=== PATIENT | male | born 1940 | race Two or more races ===

== ENCOUNTER 2020-08-12 00:14 | Inpatient (IN) | payer MEDICARE, OTHER ==
[~2020-08-12] VITALS: Ht 170.2 cm; Wt 67.6 kg
[2020-08-12] VITALS (12 sets, daily range): BP systolic 102–150; BP diastolic 39–61
--- NOTE | 2020-08-12 00:14 | NUR ---
TO ER BED 5 BIB EMS C/O SEVERE RESP DISTRESS, O2 SAT 50'S, ON NRB 69%. NOTED PT WITH ACCESORY MUSCLE USE, LUNG SOUNDS RALES BILATERALLY ON AUSCULTATION. SKIN COOL AND DIAPHORETIC. ER MD AT BEDSIDE TO EVAL PT WITH ORDERS RECEIVED. PLACE PT ON CARDIAC MONITORING, CONTINUOUS POX, O2@15L/NRB. WILL CARRY OUT ORDERS.
--- NOTE | 2020-08-12 00:27 | NUR ---
RT AT BEDSIDE TO PLACE PT ON BIPAP PER ER MD ORDER.
[2020-08-12] MEDS ORDERED: NTG 50 MG/D5W250 ML BOTTL 250 ML IV ONE ×3 (00:29→04:53)
[2020-08-12] MEDS ORDERED: FUROSEMIDE 40 MG/4 ML VIAL ONE ×3 (00:29→10:16)
[2020-08-12] MEDS ORDERED: FUROSEMIDE 40 MG/4 ML VIAL IV ONE (00:30)
[2020-08-12 00:36] LABS: BASOPHILS # (AUTO) 0.1 /CMM (0.0-0.2); BASOPHILS % (AUTO) 0.8 % (0.0-2.0); EOSINOPHILS % (AUTO) 3.6 % (0.0-6.0); HEMATOCRIT 29 % (39-51); HEMOGLOBIN 9.2 g/dL (13.5-17.5); LYMPHOCYTES % (AUTO) 38.8 % (20.0-44.0); MEAN CORPUSCULAR HGB CONC 32 g/dl (31.0-36.0); MEAN CORPUSCULAR VOLUME 91 fL (80-96); MONOCYTES # (AUTO) 0.7 /CMM (0.1-1.30); MONOCYTES % (AUTO) 7.2 % (2.0-12.0); NEUTROPHILS # (AUTO) 5.1 /CMM (1.8-8.9); NEUTROPHILS % (AUTO) 49.6 % (43.0-81.0); PLATELET COUNT (AUTO) 228 /CMM (150-450); RED BLOOD CELL COUNT(AUTO) 3.16 MIL/uL (4.5-6.0); WHITE BLOOD COUNT (AUTO) 10.3 K/uL (4.3-11.0)
[2020-08-12] MEDS ORDERED: LIDOCAINE 2% JEL UROJET 10 ML MM ONE ×2 (00:40→01:30)
--- NOTE | 2020-08-12 00:42 | NUR ---
F/C 14FR COUDE INSERTED PER ER MD ORDER WITH USE OF LIDOCAINE UROJECT.
--- NOTE | 2020-08-12 00:46 | NUR ---
RT NOTE Pt rec'd on NRB mask @ 15LPM. Pt showed Tachypnea, SOB, O2 Desaturation, and tachycardia. Pt Placed on Bipap on noted settings given from BETY NÚÑEZ. Post Bipap ABG to be taken within 1 hr.Alarms are set and audible. Bipap plugged into red outlet. Ambu bag bedside. will continue to monitor. Addendum: 08/12/20 at 0048 by MARIA LUISA MERCADO RT Amended: Links added.
[2020-08-12 01:01] LABS: ALANINE AMINOTRANSFERASE 27 U/L (12-78); ALBUMIN 3.7 g/dL (3.4-5.0); ALKALINE PHOSPHATASE 117 U/L (46-116); ASPARTATE AMINOTRANSFERASE 28 U/L (15-37); B-TYPE NATRIURETIC PEPTIDE 5439 PG/ML (0-125); BILIRUBIN,DIRECT 0.1 mg/dL (0.0-0.2); BILIRUBIN,TOTAL 0.3 mg/dL (0.2-1.0); CALCIUM, SERUM 8.6 mg/dL (8.5-10.1); CARBON DIOXIDE 21 mmol/L (21-32); CHLORIDE 102 mmol/L (98-107); CREATININE 2.7 mg/dL (0.6-1.3); POTASSIUM 4.4 mmol/L (3.5-5.1); SODIUM SERUM 136 mmol/L (136-145); TOTAL PROTEIN, SERUM 8.6 g/dL (6.4-8.2); UREA NITROGEN, BLOOD 55 mg/dL (7-18)
[2020-08-12 01:10] LABS: GLUCOSE 369 mg/dL (74-106)
--- NOTE | 2020-08-12 01:19 | NUR ---
CALL FROM LAB. RAPID COVID NEGATIVE.
[2020-08-12] MEDS ORDERED: Z GUARD REMEDY 2 OZ OINT TP PRN (02:30)
[2020-08-12] MEDS ORDERED: ONDANSETRON HCL/PF 4 MG/2 ML VIAL IVP PRN (02:30)
[2020-08-12] MEDS ORDERED: TEMAZEPAM 15 MG CAPSULE PO PRN (02:30)
[2020-08-12] MEDS ORDERED: DEXTROSE 50%-WATER 50 ML DISP.SYRIN IV PRN (02:30)
[2020-08-12 02:42] LABS: ABG BASE EXCESS -5.7 mmol/L; ABG OXYGEN SATURATION 96.1 % (92.0-98.5); ABG PCO2 37.2 mmHg (35.0-45.0); ABG PH 7.338 (7.350-7.450); ABG PO2 97.4 mmHg (75.0-100.0); AaDO2 289.5 mmHg; COHb 0.2 % (0.5-1.5); MetHb 0.7 % (0.0-1.5); O2Hb 95.2 % (94.0-97.0); SITE, ABG Right Brachial; VENT MODE, BG Bipap 20/5 60% RR14
[2020-08-12] MEDS ORDERED: ASPI-1169 PO (02:57)
[2020-08-12] MEDS ORDERED: CHOL200010 PO (02:57)
[2020-08-12] MEDS ORDERED: ALLO100T PO (02:57)
[2020-08-12] MEDS ORDERED: METO25TA20 PO (02:57)
[2020-08-12] MEDS ORDERED: LORA-259 PO (02:57)
[2020-08-12] MEDS ORDERED: ROSU20TA2 PO (02:57)
[2020-08-12] MEDS ORDERED: FURO-144 PO (02:57)
[2020-08-12] MEDS ORDERED: FOLI5VIA2 PO (02:57)
[2020-08-12] MEDS ORDERED: MINO2.5T PO (02:57)
[2020-08-12] MEDS ORDERED: EPOE1VIA12 IJ (02:57)
[2020-08-12] MEDS ORDERED: FURO80TA85 PO (02:57)
[2020-08-12] MEDS ORDERED: LORAZEPAM 1 MG TABLET ONE (03:57)
[2020-08-12] MEDS ORDERED: LORAZEPAM 1 MG TABLET PO ONE (04:00)
--- NOTE | 2020-08-12 04:08 | NUR ---
PT ANXIOUS, COMPLAINING OF INABIITY TO SLEEP. ALSO REQUESTING TO BE TAKEN OFF THE BIPAP. OBTAINED AN ORDER FOR ATIVAN PO FROM AND PT WAS MEDICATED ORDER. PT IS GIVEN A TRIAL OF WEANING OF FROM THE BIPAP AND WAS PLACED ON O2 AT 10LPM VIA SIMPLE MASK. PT REMAINED ON FULL [place] MAINTENANCE MANAGER AND UNDER CLOSE OBSERVATION. CURRENTLY SATTING AT 95% . WILL CONT TO MONITOR ,
--- NOTE | 2020-08-12 04:50 | NUR ---
pt was placed back on BIPAP due to low O2 sat of 89-90%. remained on monitor,.
--- NOTE | 2020-08-12 06:37 | NUR ---
Patient is resting comfortably in bed with eyes closed. Easily aroused. VSS. will cont to monitor
[2020-08-12] MEDS ORDERED: HEPARIN SODIUM, PORCINE 5000 UNITS/1 ML VIAL ONE (07:29)
[2020-08-12] MEDS ORDERED: PANTOPRAZOLE 40 MG TABLET.DR PO ONE (07:29)
[2020-08-12] MEDS ORDERED: PANTOPRAZOLE 40 MG TABLET.DR PO SCH (07:30)
--- NOTE | 2020-08-12 07:44 | NUR ---
PT'S SHOTWELD OPERATOR AND PRIMARY MD [phone]
--- NOTE | 2020-08-12 07:45 | NUR ---
PT CURT PALENCIA POINT OF CONTACT [phone]
--- NOTE | 2020-08-12 08:07 | NUR ---
RT NOTE PT RECEIVED ON BIPAP. AWAKE/ALERT. PT PLACED ON SIMPLE MASK 10LPM AND IS TOLERATING WELL. RN AWARE. WILL CONTINUE TO MONITOR.
[2020-08-12] MEDS: BLOOD SUGAR DIAGNOSTIC 1 EACH STRIP VI SCH ×4 (08:18→22:03)
[2020-08-12] MEDS ORDERED: INSULIN REGULAR, HUMAN 100 UNIT/ML 10 ML VIAL ONE (08:21)
[2020-08-12] MEDS: INSULIN REGULAR, HUMAN 100 UNIT/ML 3 ML VIAL SQ PRN (08:24)
[2020-08-12] MEDS ORDERED: HEPARIN SODIUM, PORCINE 5000 UNITS/1 ML VIAL SQ SCH (09:00)
[2020-08-12] MEDS ORDERED: FUROSEMIDE 40 MG/4 ML VIAL IV SCH (09:00)
--- NOTE | 2020-08-12 09:23 | NUR ---
PRIMARY MD CALLED. LEFT CONTACT # [phone]
--- NOTE | 2020-08-12 09:55 | NUR ---
ICU 256 ASSIGNED
[2020-08-12] MEDS: FUROSEMIDE 100 MG/10 ML VIAL IV SCH ×3 (10:21→13:54)
[2020-08-12] MEDS ORDERED: LEVOFLOXACIN 500 MG /D5W 100ML 500 MG in PREMIX 1 EA IV SCH (10:30)
[2020-08-12] MEDS ORDERED: LEVOFLOXACIN 750 MG /D5W 150ML 750 MG in PREMIX 1 EA IV SCH (11:00)
--- NOTE | 2020-08-12 11:03 | NUR ---
REPORT GIVEN TO DIOGO. WILL TRANSFER TO ICU.
--- NOTE | 2020-08-12 11:13 | NUR ---
MACHINE CUTTER NOTES RECEIVED PATIENT FROM ER WITH DX OF CHF EXACERBATION , ON 6LPM SIMPLE MASK WITH SPO2 OF 97% , DENIES SOB AND DISCOMFORT , SR 95 ON BEDSIDE MONITOR , FC DRAINING VIA GRAVITY , SKIN ASSESSMENT DONE , SKIN IS INTACT NO WOUNDS NOTED , IV OF L FA # 18 AND RFA # 18 PATENT AND INTACT WITH NITROGLYCERIN @ 10ML/HR INFUSING WELL NOTIFIED DR GUZMAN @ THAT PT IS CURRENTLY ON NITRO DRIP @ 10MKL/JHR , BP IS 129/59 HR 93 100% ON SIMPLE MASK @ 6LPM , PER MD LEWIS NITRO DRIP , ORDER CARRIED OUT
--- NOTE | 2020-08-12 11:20 | NUR ---
RT NOTE PT TRANSFERRED TO ICU WITH SIMPLE MASK. NO DISTRESS NOTED. PATIENT TOLERATING WELL WITHOUT BIPAP.
--- NOTE | 2020-08-12 11:56 | NUR ---
ROLLER BILLET MILL NOTES NOTIFIED DR GUZMAN REGARDING CRITICAL TROPONIN , PER MD START PT ON HEPARIN DRIP , ORDER CARRIED OUT
--- NOTE | 2020-08-12 12:00 | NUR ---
MACHINE STONECUTTER NOTES TITRATED O2 FROM SIMPLE MASK @ 6LPM TO NC @ 4LPMN NO DISTRESS , DENIES SOB , SPO2 OF 98% ,WILL CONTINUE TO MONITOR
[2020-08-12] MEDS ORDERED: HEPARIN INFUSION/D5W 500 ML IV PRN (12:30)
[2020-08-12] MEDS ORDERED: HEPARIN SODIUM, PORCINE 5000 UNITS/1 ML VIAL IV ONE (12:30)
--- NOTE | 2020-08-12 12:30 | NUR ---
TAR LEVELER NOTES NOTIFIED DR GUZMAN THAT PT RECEIVED 5000 UNITS OF HEPARIN SQ , VERIFIED IF HE WANTS BOLUS PER [facility] HEPARIN PROTOCOL , PER MD JUST THE DRIP ORDER CARRIED OUT
[2020-08-12] MEDS: MINOXIDIL (2.5MG) 2.5 MG TABLET PO SCH ×2 (12:52→21:12)
--- NOTE | 2020-08-12 14:46 | NUR ---
BUFFING WHEEL FORMER MACHINE NOTE NOTIFIED DR GUZMAN REGARDING LASIX TOTAL OF 160MG GIVEN AT ER WITH 3.5 L URINE OUTPUT , THERE IS ANOTHER LASIX @ 1400 AND 1800 80MG IVP , PT IS COMPLAINING OF LEG CRAMPS K IS 4.4 , PT ON 4LPM NC SPO2 OF 98% WITH NO DISTRESS , VERIFIED IF HE WANTS TO CONTINUE LASIX OR HOLD , PER MD OK TO GIVE 1400 DOSE AND HOLD 1800 DOSE . VERIFY IF HE WANTS TO SUPPLEMENT POTASSIUM PER MD NOT NOW ,
[2020-08-12] MEDS: HYDROCODONE/APAP 5/325MG TABLET PO PRN (15:33)
[2020-08-12] MEDS ORDERED: POLYETHYLENE GLYCOL 3350 17 GM POWD.PACK PO PRN (16:00)
[2020-08-12 16:23] LABS: BILIRUBIN,URINE NEGATIVE (NEGATIVE); COLOR,URINE YELLOW (YELLOW); LEUKOCYTE ESTERASE ,URINE NEGATIVE (NEGATIVE); NITRITE, URINE NEGATIVE (NEGATIVE); PROTEIN,URINE 30 mg/dl (NEGATIVE); UGLUCOSE NEGATIVE (NEGATIVE); UROBILINOGEN,URINE 0.2 EU/dL (0.2)
[2020-08-12 16:32] LABS: BACTERIA,URINE Few /HPF (None Seen); RBC,URINE TOO NUMEROUS TO COUN /HPF (0-2); SQUAMOUS EPITHELIAL CELL,UR Few /HPF (None Seen)
[2020-08-12 16:33] LABS: EOSINOPHIL,URINE None Seen
[2020-08-12 16:47] LABS: CREATININE, URINE < 13.0 MG/DL (30.0-125.0); URINE SODIUM, RANDOM 114 mmol/l (40-220); URINE TOTAL PROTEIN 61.4 mg/dL (0-11.9)
[2020-08-12] MEDS: METOPROLOL TARTRATE 25 MG TABLET PO SCH (16:56)
[2020-08-12] MEDS ORDERED: DOCUSATE SODIUM LIQ 100 MG/10 ML UDC NG SCH (17:00)
--- NOTE | 2020-08-12 19:00 | NUR ---
RN NOTE RECEIVED PATIENT IN BED, ON SEMI SOOD'S, AO X 4, IN NO S/SX OF ACUTE DISTRESS AT THIS TIME. ATIENT'S BREATHING IS EVEN AND UNLABORED. PATIENT IS ON 3 L OF OXYGEN VIA NC, TOLERATING WELL, SATURATION AT 98%., SR ON THE MONITOR, HR IS 82. NOTED IV SITE AT LFA 18G, AND RFA 18G, PATENT AND FLUSHING WELL, NO S/S OF INFECTION OR INFILTRATION, WITH HEPARIN DRIP INFUSING AT 1125 UNITS/HR. GONZÁLES CATHETER CONNECTED TO URINE BAG IN PLACE, DRAINING TO A CLEAR, YELLOW OUTPUT. SAFETY MEASURES IMPLEMENTED PER PROTOCOL. PATIENT BED ALARM IS ON. HEAD OF BED ELEVATED. BED IS LOCKED, IN LOWEST POSITION AND SIDE RAILS UP. CALL LIGHT WITHIN REACH OF THE PATIENT. WILL CONTINUE TO MONITOR AND REASSESS FOR ANY CHANGES.
[2020-08-12] MEDS: LORAZEPAM 1 MG TABLET PO SCH (21:12)
[2020-08-13] VITALS (47 sets, daily range): BP systolic 73–174; BP diastolic 39–80
--- NOTE | 2020-08-13 02:00 | NUR ---
RN NOTE NOTED SPO2 AT 100% ON 3LPM OXYGEN VIA NASAL CANNULA. TITRATED O2 TO 2LPM. TOLERATING WELL, SATURATION AT 96%. WILL CONTINUE TO MONITOR OXYGENATION STATUS.
[2020-08-13 02:10] LABS: BASOPHILS % (AUTO) 0.5 % (0.0-2.0); EOSINOPHILS % (AUTO) 0.5 % (0.0-6.0); LYMPHOCYTES # (AUTO) 0.9 /CMM (0.8-4.8); LYMPHOCYTES % (AUTO) 11.9 % (20.0-44.0); MEAN CORPUSCULAR HGB CONC 33 g/dl (31.0-36.0); MEAN CORPUSCULAR VOLUME 89 fL (80-96); MONOCYTES # (AUTO) 0.7 /CMM (0.1-1.30); MONOCYTES % (AUTO) 8.8 % (2.0-12.0); NEUTROPHILS % (AUTO) 78.3 % (43.0-81.0); PLATELET COUNT (AUTO) 159 /CMM (150-450); RED BLOOD CELL COUNT(AUTO) 2.29 MIL/uL (4.5-6.0); WHITE BLOOD COUNT (AUTO) 7.7 K/uL (4.3-11.0)
[2020-08-13 02:25] LABS: HEMOGLOBIN 6.7 g/dL (13.5-17.5)
--- NOTE | 2020-08-13 02:25 | NUR ---
RN NOTE TELEPHONE CALL FROM MOISE OF [facility], CRITICAL LAB VALUE OF HGB 6.7, AND PTT OF 77.9. NO SIGN OF BLEEDING NOTED. NO COMPLAINTS OF ABDOMINAL PAIN. PATIENT TOLERATING 02 AT [address] MALDONADO WAS NOTIFIED. ORDERS RECEIVED FOR REPEAT CBC STAT. ONGOING HEPARIN DRIP WAS PUT ON HOLD 5 MINS PRIOR TO BLOOD DRAW. REPEAT CBC RESULTED, HGB 6.9. DR MALDONADO PRESENT AT UNIT AND REASSESSED PATIENT. ORDERS RECEIVED FOR CAT SCAN OF ABDOMEN WITHOUT CONTRAST, DC PROTONIX 40 MG PO ONCE A DAY, TO PROTONIX 40 MG IV BID, COLLECT STOOL FOR FECAL OCCULT BLOOD, HOLD HEPARIN DRIP FOR NOW, AND TO TRANSFUSE 1 UNIT OF PRBC. CONSENT FOR TRANSFUSION OBTAINED FROM PATIENT. WILL CONTINUE TO MONITOR PATIENT FOR SIGNS OF BLEEDING, AND FOR ANY CHANGES.
[2020-08-13 02:26] LABS: HEMATOCRIT 20 % (39-51)
[2020-08-13 02:28] LABS: CALCIUM, SERUM 8.8 mg/dL (8.5-10.1); CARBON DIOXIDE 23 mmol/L (21-32); CHLORIDE 104 mmol/L (98-107); CREATININE 2.6 mg/dL (0.6-1.3); GLUCOSE 126 mg/dL (74-106); MAGNESIUM 2.5 mg/dL (1.8-2.4); PHOSPHORUS 5.3 mg/dL (2.5-4.9); POTASSIUM 4.7 mmol/L (3.5-5.1); SODIUM SERUM 138 mmol/L (136-145); UREA NITROGEN, BLOOD 61 mg/dL (7-18)
[2020-08-13 02:40] LABS: CHOLESTEROL 133 mg/dL (<200); CREATINE KINASE, TOTAL 167 U/L (39-308); HDL CHOLESTEROL 82 mg/dL (40-60); LDL 40 mg/dL (0-99); THYROID STIMULATING HORMONE 1.094 uIU/mL (0.358-3.74); TRIGLYCERIDES 25 mg/dL (30-150)
[2020-08-13 03:04] LABS: BASOPHILS # (AUTO) 0.1 /CMM (0.0-0.2); BASOPHILS % (AUTO) 0.6 % (0.0-2.0); EOSINOPHILS % (AUTO) 0.3 % (0.0-6.0); HEMATOCRIT 21 % (39-51); LYMPHOCYTES % (AUTO) 12.9 % (20.0-44.0); MEAN CORPUSCULAR HGB CONC 33 g/dl (31.0-36.0); MEAN CORPUSCULAR VOLUME 89 fL (80-96); MONOCYTES # (AUTO) 0.8 /CMM (0.1-1.30); NEUTROPHILS # (AUTO) 6.1 /CMM (1.8-8.9); NEUTROPHILS % (AUTO) 76.2 % (43.0-81.0); PLATELET COUNT (AUTO) 161 /CMM (150-450); RED BLOOD CELL COUNT(AUTO) 2.39 MIL/uL (4.5-6.0)
[2020-08-13 03:07] LABS: HEMOGLOBIN 6.9 g/dL (13.5-17.5)
[2020-08-13 04:13] LABS: EOSINOPHILS % (MANUAL) 1 % (0-4); LYMPHOCYTES % (MANUAL) 9 % (16-48); MONOCYTES % (MANUAL) 5 % (0-11.0); NEUTROPHILS % (MANUAL) 85 (42-76)
[2020-08-13] MEDS: MORPHINE SULFATE INJ 2 MG/ML DISP.SYRIN IV PRN (04:55)
--- NOTE | 2020-08-13 07:30 | NUR ---
RN OPENING NOTES PATIENT PRESENT IN BED, A/OX4, ON NC @ 4L, SPO2 IS 95%, NO SOB, RESPIRATIONS EVEN AND UNLABORED, NO SOB NOTED, DENIES DISCOMFORT, SR ST ON TELEMONITOR,GONZÁLES CATH IN PLACE, DRAINING YELLOW CLEAN URINE BY GRAVITY, IV LINES FLUSHED, INTACT, SAFETY MEASURES IN PLACE, BED LOCKED, IN LOWEST POSITION,CALL LIGHT IN REACH, WILL CONT TO MONITOR
[2020-08-13] MEDS: BLOOD SUGAR DIAGNOSTIC 1 EACH STRIP VI SCH ×4 (07:55→21:07)
[2020-08-13] MEDS: INSULIN REGULAR, HUMAN 100 UNIT/ML 3 ML VIAL SQ PRN ×3 (07:55→16:40)
[2020-08-13] MEDS: METOPROLOL TARTRATE 25 MG TABLET PO SCH (08:16)
[2020-08-13] MEDS: PANTOPRAZOLE 40 MG VIAL IV SCH ×2 (08:16→16:09)
[2020-08-13] MEDS: FUROSEMIDE 100 MG/10 ML VIAL IV SCH ×3 (08:16→16:09)
[2020-08-13] MEDS: ATORVASTATIN 40 MG TABLET PO SCH (08:16)
[2020-08-13] MEDS: MINOXIDIL (2.5MG) 2.5 MG TABLET PO SCH (08:16)
[2020-08-13] MEDS: ALLOPURINOL 100 MG TABLET PO SCH (08:17)
--- NOTE | 2020-08-13 08:33 | NUR ---
reporting headache level 3/10, will administer PRN Tylenol
[2020-08-13] MEDS: ACETAMINOPHEN 325 MG TABLET PO PRN ×2 (08:34→20:56)
--- NOTE | 2020-08-13 09:09 | NUR ---
HR 138-150, BP 92/53, DR GUZMAN NOTIFIED
[2020-08-13] MEDS ORDERED: LEVOFLOXACIN 750 MG /D5W 150ML 750 MG in PREMIX 1 EA IV SCH (10:00)
[2020-08-13] MEDS ORDERED: AMIODARONE 450 MG in IV D5W 250 ML IV PRN (10:00)
[2020-08-13] MEDS ORDERED: AMIODARONE 150 MG in IV D5W 100 ML IV ONE (10:00)
--- NOTE | 2020-08-13 10:30 | NUR ---
AMIODARONE BOLUS INITIATED, STAT AMIO DRIP, HR BACK TO 72-77, BP IS STABLE , WILL CONT TO MONITOR
[2020-08-13 10:43] LABS: BASOPHILS % (AUTO) 0.2 % (0.0-2.0); EOSINOPHILS % (AUTO) 0.6 % (0.0-6.0); HEMATOCRIT 24 % (39-51); HEMOGLOBIN 7.9 g/dL (13.5-17.5); LYMPHOCYTES # (AUTO) 0.4 /CMM (0.8-4.8); LYMPHOCYTES % (AUTO) 5.8 % (20.0-44.0); MEAN CORPUSCULAR HGB CONC 33 g/dl (31.0-36.0); MEAN CORPUSCULAR VOLUME 87 fL (80-96); MONOCYTES # (AUTO) 0.5 /CMM (0.1-1.30); MONOCYTES % (AUTO) 7.1 % (2.0-12.0); NEUTROPHILS % (AUTO) 86.3 % (43.0-81.0); PLATELET COUNT (AUTO) 143 /CMM (150-450); RED BLOOD CELL COUNT(AUTO) 2.74 MIL/uL (4.5-6.0); WHITE BLOOD COUNT (AUTO) 6.9 K/uL (4.3-11.0)
[2020-08-13] MEDS: CEFEPIME 2 GM in IV D5W 100 ML IV SCH (12:16)
--- NOTE | 2020-08-13 12:50 | NUR ---
PER DR THOMAS LEWIS LONITEN 2.5MG , PT'S BP 92/69, HR 81
--- NOTE | 2020-08-13 13:00 | NUR ---
FAMILY AT BED SITE, UPDATES PROVIDED
[2020-08-13 13:07] LABS: *SPE A/G RATIO 1.1 (0.7-1.7); *SPE ALBUMIN 3.6 g/dL (2.9-4.4); *SPE ALPHA-1-GLOBULIN 0.3 g/dL (0.0-0.4); *SPE ALPHA-2-GLOBULIN 0.9 g/dL (0.4-1.0); *SPE BETA GLOBULIN 0.9 g/dL (0.7-1.3); *SPE GLOBULIN, TOTAL 3.3 g/dL (2.2-3.9); *SPE M-SPIKE Not Observed g/dL (Not Observed); *SPEGAMMA GLOBULIN 1.2 g/dL (0.4-1.8)
[2020-08-13] MEDS ORDERED: EPOETIN ALFA (10,000 UNIT) 10,000 UNIT/ML VIAL SQ SCH (15:00)
--- NOTE | 2020-08-13 16:18 | NUR ---
BP 115/48, HR 71, PER DR THOMAS SIMPSON
--- NOTE | 2020-08-13 19:10 | NUR ---
RN CLOSING NOTES REMAINS IN ROOM,ON 2L OF O2, SPO2 96%, COMFORT NEEDS PROVIDED, MEDICATIONS GIVEN, NO ACUTE CHANGES DURING THE SHIFT, VS STABLE, SAFETY MEASURES IN PLACE, WILL ENDORSE TO PM SHIFT RN FOR ROSALBA
--- NOTE | 2020-08-13 19:30 | NUR ---
RN NOTE RECEIVED PT IN BED, ALERT AND ORIENTED X4, VERBALLY RESPONSIVE. ON O2 THERAPY OF 1L, SATING AT 97%, DENIES , HOB ELEVATED. NO DISTRESS NOTED. ON TELE MONITORING SR WITH HR OF 94. DENIES ANY PAIN AT THIS TIME. IV ON RFA PATENT AND INTACT. PT WITH GONZÁLES CATH WITH CLEAR URINE OUTPUT. ALL SAFETY MEASURES IMPLEMENTED PER PROTOCOL, CALL LIGHT WITHIN REACH. BED LOCKED IN LOWEST POSITION. WILL CONTINUE TO MONITOR.
--- NOTE | 2020-08-13 20:56 | NUR ---
RN NOTE PT COMPLAINED OF NECK PAIN, REPOSITIONED PATIENT, DID NOTE HELP. TYLENOL GIVEN ORDERED. PT WITH NO CHANGES IN LOC, ABLE TO MOVE ALL EXTREMITIES. WILL CONTINUE TO MONITOR.
[2020-08-13] MEDS: LORAZEPAM 1 MG TABLET PO SCH (21:00)
[2020-08-13] MEDS: *INSULIN REGULAR(HUMULIN R)HUM 100 UNIT/ML VIAL SQ PRN (21:08)
[2020-08-14] VITALS (16 sets, daily range): BP systolic 100–194; BP diastolic 42–77
[2020-08-14] MEDS: MORPHINE SULFATE INJ 2 MG/ML DISP.SYRIN IV PRN (00:01)
--- NOTE | 2020-08-14 00:01 | NUR ---
RN NOTE PT COMPLAINED OF SEVERE PAIN 10/10 ON RIGHT LEG. REPOSITIONING NOT EFFECTIVE. MORPHINE GIVEN ORDERED. WILL CONTINUE TO MONITOR.
--- NOTE | 2020-08-14 00:35 | NUR ---
RN NOTE PT SLEEPING, AROUSES EASILY. PAIN 5/10
[2020-08-14 04:06] LABS: PTH, INTACT 43 pg/mL (15-65)
[2020-08-14 04:27] LABS: BASOPHILS % (AUTO) 0.7 % (0.0-2.0); EOSINOPHILS % (AUTO) 1.4 % (0.0-6.0); HEMATOCRIT 24 % (39-51); HEMOGLOBIN 7.8 g/dL (13.5-17.5); LYMPHOCYTES % (AUTO) 14.6 % (20.0-44.0); MEAN CORPUSCULAR HGB CONC 33 g/dl (31.0-36.0); MEAN CORPUSCULAR VOLUME 87 fL (80-96); MONOCYTES # (AUTO) 0.8 /CMM (0.1-1.30); MONOCYTES % (AUTO) 11.6 % (2.0-12.0); NEUTROPHILS % (AUTO) 71.7 % (43.0-81.0); PLATELET COUNT (AUTO) 146 /CMM (150-450); RED BLOOD CELL COUNT(AUTO) 2.71 MIL/uL (4.5-6.0)
[2020-08-14 04:40] LABS: ALANINE AMINOTRANSFERASE 16 U/L (12-78); ALKALINE PHOSPHATASE 79 U/L (46-116); ASPARTATE AMINOTRANSFERASE 18 U/L (15-37); BILIRUBIN,TOTAL 0.5 mg/dL (0.2-1.0); CALCIUM, SERUM 8.9 mg/dL (8.5-10.1); CARBON DIOXIDE 23 mmol/L (21-32); CHLORIDE 102 mmol/L (98-107); CREATININE 2.9 mg/dL (0.6-1.3); GLUCOSE 115 mg/dL (74-106); MAGNESIUM 2.5 mg/dL (1.8-2.4); PHOSPHORUS 5.4 mg/dL (2.5-4.9); POTASSIUM 4.1 mmol/L (3.5-5.1); SODIUM SERUM 137 mmol/L (136-145); TOTAL PROTEIN, SERUM 6.9 g/dL (6.4-8.2); UREA NITROGEN, BLOOD 71 mg/dL (7-18)
--- NOTE | 2020-08-14 04:57 | NUR ---
RN NOTE TROPONIN 0.710, TRENDING DOWN. ASTRID MALDONADO NOTIFIED. NO NEW ORDER MADE.
[2020-08-14] MEDS: ACETAMINOPHEN 325 MG TABLET PO PRN (06:39)
--- NOTE | 2020-08-14 06:40 | NUR ---
RN NOTE PT SLEEPING, AROUSES EASILY. STILL COMPLAIN OF NECK PAIN. ASSISTED IN REPOSITIONING. TYLENOL GIVEN. NO DISTRESS NOTED. TOLERATING 1L O2, 98 % O2 SAT. PT DENIES SOB DENIES CHEST PAIN. ALL NEEDS ATTENDED. CALL LIGHT WITHIN REACH AT ALL TIMES. ALL SAFETY MEASURES MAINTAINED. WILL ENDORSE TO NEXT SHIFT NURSE FOR ROSALBA.
[2020-08-14] MEDS: BLOOD SUGAR DIAGNOSTIC 1 EACH STRIP VI SCH ×4 (07:27→21:54)
--- NOTE | 2020-08-14 07:27 | NUR ---
PT WAS GIVEN BREAKFAST BY HEALTH PROFESSIONAL BEFORE RN HAD A CHANCE TO DO AC ACCUCHECK. WILL GO BY AM LABS FOR GLUCOSE RESULT. GLUCOSE WAS 115, NO COVERAGE GIVEN.
[2020-08-14 08:06] LABS: *SPE A/G RATIO 0.9 (0.7-1.7); *SPE ALBUMIN 2.9 g/dL (2.9-4.4); *SPE ALPHA-1-GLOBULIN 0.4 g/dL (0.0-0.4); *SPE ALPHA-2-GLOBULIN 0.8 g/dL (0.4-1.0); *SPE BETA GLOBULIN 0.9 g/dL (0.7-1.3); *SPE GLOBULIN, TOTAL 3.1 g/dL (2.2-3.9); *SPE M-SPIKE Not Observed g/dL (Not Observed)
[2020-08-14] MEDS: PANTOPRAZOLE 40 MG VIAL IV SCH ×2 (08:17→16:14)
[2020-08-14] MEDS: ALLOPURINOL 100 MG TABLET PO SCH (08:17)
[2020-08-14] MEDS: ATORVASTATIN 40 MG TABLET PO SCH (08:17)
[2020-08-14] MEDS: FUROSEMIDE 100 MG/10 ML VIAL IV SCH ×3 (08:17→16:14)
--- NOTE | 2020-08-14 08:44 | NUR ---
REPORT GIVEN TO POPEYE ROSAS FOR TRANSFER TO ROOM 111
--- NOTE | 2020-08-14 08:45 | NUR ---
RECEIVED REPORT FROM RALPH BLACKMON IN ICU FOR ROSALBA
[2020-08-14] MEDS ORDERED: ASPIRIN 81 MG TAB.CHEW PO SCH (09:00)
--- NOTE | 2020-08-14 10:25 | NUR ---
CORRECTION FROM PREVIOUS NOTE: REPORT WAS GIVEN TO KENNETH ROSAS. PT TAKEN TO CT OF HEAD AT 1000 THEN TO NEW ROOM 111. PT SETTLED IN NEW ROOM, CONFERENCE SERVICES DIRECTOR IN ROOM TAKING VITALS AND ATTACHING TELEMETRY BOX. KENNETH ROSAS UPDATED FROM REPORT. Addendum: 08/14/20 at 1027 by NEYMAR KELLY RN ALL PERSONAL BELONGINGS SENT WITH PATIENT INCLUDING GLASSES, CELL PHONE, PHONE ELECTRON BEAM WELDER SETTER AND LARGE BAG OF PERSONAL BELONGINGS AND CLOTHES.
--- NOTE | 2020-08-14 10:30 | NUR ---
TRANSFER NOTE RECEIVED PATIENT, CURRENTLY IN BED RESTING. NO S/S OF ACUTE DISTRESS AT THIS TIME O2 SATURATION 97%. PATIENT A/OX4, ABLE TO MAKE NEEDS KNOWN. TELE MONITOR SHOWING NSR IN 90S. PATIENT HAS A GONZÁLES CATHETER IN PLACE, DRAINING NORMALLY. PATIENT ON A CCHO DIET, TOLERATING WELL. PATIENT HAS A RFA 18G IV, INTACT AND PATENT. SALINE FLUSHED. ALL SAFETY MEASURES IN PLACE PER HOPTAL POLICY. CALL LIGHT WITHIN REACH. BED LOCKED IN LOWEST POSITION. WILL CONTINUE TO MONITOR AND PROVIDE TREATMENT.
[2020-08-14] MEDS: INSULIN REGULAR, HUMAN 100 UNIT/ML 3 ML VIAL SQ PRN ×2 (11:46→17:15)
[2020-08-14] MEDS: CEFEPIME 2 GM in IV D5W 100 ML IV SCH (12:17)
[2020-08-14] MEDS: HYDROCODONE/APAP 5/325MG TABLET PO PRN ×2 (12:22→20:33)
--- NOTE | 2020-08-14 18:54 | NUR ---
OPENING NOTE CURRENTLY IN BED RESTING. NO S/S OF ACUTE DISTRESS AT THIS TIME O2 SATURATION 97%. PATIENT A/OX4, ABLE TO MAKE NEEDS KNOWN. TELE MONITOR SHOWING NSR IN 90S. PATIENT HAS A GONZÁLES CATHETER IN PLACE, DRAINING NORMALLY. PATIENT ON A CCHO DIET, TOLERATING WELL. PATIENT HAS A RFA 18G IV, INTACT AND PATENT. SALINE FLUSHED. ALL SAFETY MEASURES IN PLACE PER [facility] POLIC[facility]. CALL LIGHT WITHIN REACH. BED LOCKED IN LOWEST POSITION. WILL CONTINUE TO MONITOR AND PROVIDE TREATMENT.
--- NOTE | 2020-08-14 19:22 | NUR ---
RN NOTE RECEIVED PT IN BED, ALERT AND ORIENTED X4, VERBALLY RESPONSIVE. ON ROOM AIR O2 SAT AT 95 %. DENIES , HOB ELEVATED. NO DISTRESS NOTED. ON TELE MONITORING SR WITH HR OF 90S. DENIES ANY PAIN AT THIS TIME. IV ON RFA PATENT AND INTACT.FLUSHED NO SIGNS OF INFECTION NOTED. PT WITH GONZÁLES CATH WITH CLEAR URINE OUTPUT. ALL SAFETY MEASURES IMPLEMENTED PER PROTOCOL, CALL LIGHT WITHIN REACH. BED LOCKED IN LOWEST POSITION. WILL CONTINUE TO MONITOR.
[2020-08-14] MEDS: MUPIROCIN OINT 2% 22 GM TUBE NS SCH (20:33)
--- NOTE | 2020-08-14 20:33 | NUR ---
RN NOTE PT COMPLAINED OF NECK PAIN, ALSO NOTED WITH ELEVATED BP. NORCO 5/325MG GIVEN. WILL CONTINUE TO MONITOR.
--- NOTE | 2020-08-14 21:34 | NUR ---
RN NOTE ENDORSED TO RUPAL FOR ROSALBA AND THE ELEVATED BP.
[2020-08-14] MEDS: *INSULIN REGULAR(HUMULIN R)HUM 100 UNIT/ML VIAL SQ PRN (21:58)
[2020-08-14] MEDS: LORAZEPAM 1 MG TABLET PO SCH (22:04)
[2020-08-14] MEDS: hydrALAZINE HCL 50 MG TABLET PO SCH (22:05)
[2020-08-15] VITALS (8 sets, daily range): BP systolic 106–217; BP diastolic 44–94
[2020-08-15] MEDS: hydrALAZINE HCL 50 MG TABLET PO SCH ×3 (06:53→13:00)
--- NOTE | 2020-08-15 06:56 | NUR ---
ENDING NOTES: BEGINNING OF THE SHIFT BLOOD PRESSURE IN THE 190'S TEXTED MD MAZA AND NEW ORDER GIVEN GIVEN FIRST DOSE...BRING THE BLOOD PRESSURE TO THE 170'S PT IS ASYMPTOMATIC, THIS AM AT 0600 BLOOD PRESSURE 217/94 HR 104 TEXT MD MAZA AND SAID OKAY TO GIVE THE 9AM MAYS APRESOLINE 50MG NOW GIVEN TO PATIENT WILL MONITOR
--- NOTE | 2020-08-15 07:30 | NUR ---
RN OPENING NOTES PATIENT PRESET IN BED, A/OX4, ON ROOM AIR, SPO2 IS 100%, REPARATIONS EVEN AND UNLABORED, TOLERATING WELL, MONITORING BP CLOSELY, NST ON TELE-MONITOR, IV LINE PATENT AND INTACT, HOB ELEVATED, CALL LIGHT IN REACH, BED ALARM IS ON, GONZÁLES CATH IN PLACE, DRAINING YELLOW CLEAR URINE BY GRAVITY, WILL CONT TO MONITOR
[2020-08-15] MEDS: BLOOD SUGAR DIAGNOSTIC 1 EACH STRIP VI SCH ×4 (08:02→21:08)
[2020-08-15] MEDS: ALLOPURINOL 100 MG TABLET PO SCH (08:09)
[2020-08-15] MEDS: ATORVASTATIN 40 MG TABLET PO SCH (08:09)
[2020-08-15] MEDS: HYDROCODONE/APAP 5/325MG TABLET PO PRN (08:09)
[2020-08-15] MEDS: PANTOPRAZOLE 40 MG VIAL IV SCH ×2 (08:10→17:02)
[2020-08-15] MEDS: MUPIROCIN OINT 2% 22 GM TUBE NS SCH ×2 (08:11→21:08)
[2020-08-15] MEDS: INSULIN REGULAR, HUMAN 100 UNIT/ML 3 ML VIAL SQ PRN ×2 (08:11→17:37)
[2020-08-15 08:39] LABS: BASOPHILS % (AUTO) 0.5 % (0.0-2.0); HEMATOCRIT 31 % (39-51); HEMOGLOBIN 10.1 g/dL (13.5-17.5); LYMPHOCYTES # (AUTO) 0.7 /CMM (0.8-4.8); LYMPHOCYTES % (AUTO) 8.7 % (20.0-44.0); MEAN CORPUSCULAR HGB CONC 33 g/dl (31.0-36.0); MEAN CORPUSCULAR VOLUME 86 fL (80-96); MONOCYTES # (AUTO) 0.9 /CMM (0.1-1.30); MONOCYTES % (AUTO) 11.5 % (2.0-12.0); NEUTROPHILS # (AUTO) 5.9 /CMM (1.8-8.9); NEUTROPHILS % (AUTO) 78.3 % (43.0-81.0); PLATELET COUNT (AUTO) 209 /CMM (150-450); WHITE BLOOD COUNT (AUTO) 7.6 K/uL (4.3-11.0)
[2020-08-15 08:52] LABS: ALANINE AMINOTRANSFERASE 18 U/L (12-78); ALBUMIN 3.1 g/dL (3.4-5.0); ALKALINE PHOSPHATASE 101 U/L (46-116); ASPARTATE AMINOTRANSFERASE 20 U/L (15-37); BILIRUBIN,TOTAL 0.7 mg/dL (0.2-1.0); CALCIUM, SERUM 9.4 mg/dL (8.5-10.1); CARBON DIOXIDE 26 mmol/L (21-32); CHLORIDE 98 mmol/L (98-107); CREATININE 2.8 mg/dL (0.6-1.3); GLUCOSE 194 mg/dL (74-106); MAGNESIUM 2.2 mg/dL (1.8-2.4); PHOSPHORUS 4.3 mg/dL (2.5-4.9); POTASSIUM 3.8 mmol/L (3.5-5.1); SODIUM SERUM 136 mmol/L (136-145); UREA NITROGEN, BLOOD 71 mg/dL (7-18)
--- NOTE | 2020-08-15 09:00 | NUR ---
TOOK BP MANUALLY, 140/68
[2020-08-15] MEDS: NIFEdipine XL (30MG) 30 MG TAB PO SCH (09:42)
[2020-08-15] MEDS: ISOSORBIDE DINITRATE (20MG) 20 MG TABLET PO SCH ×2 (09:43→17:02)
--- NOTE | 2020-08-15 09:45 | NUR ---
PATIENT EMPHASIZE WILLINGNESS TO AMBULATE, WILL FOLLOW UP WITH PT
[2020-08-15] MEDS: *INSULIN REGULAR(HUMULIN R)HUM 100 UNIT/ML VIAL SQ PRN ×2 (12:25→21:32)
--- NOTE | 2020-08-15 13:30 | NUR ---
RN NOTE BP 105/42 HR 108, CONTACTED DR GUZMAN , ORDERED DC
[2020-08-15] MEDS: CEFEPIME 2 GM in IV D5W 100 ML IV SCH (13:47)
--- NOTE | 2020-08-15 18:49 | NUR ---
RN CLOSING NOTES PATIENT REMAINS IN BED, PT EVAL DONE, WAS ABLE TO AMBULATE, BUT VERY WEAK, PROVIDED WITH MEDICATIONS, REPOSITIONING, EDUCATION, FEEDING. NO ACUTE CHANGES DURING THE SHIFT, FAMILY UPDATED X3, SAFETY PRECAUTIONS IN PLACE, CALL LIGHT IN REACH, WILL ENDOPRSE TO PM SHIFT RN FOR ROSALBA
--- NOTE | 2020-08-15 19:05 | NUR ---
RECEIVED PT ON BED AWAKE A/O X4 CAN VERBALIZED NEEDS, ON ROOM AIR SPO2 98% NO SIGN AND SYMPTOMS OF RESPIRATORY DISTRESS, TELE MONITOR READS SINUS TACHY 100'S HAVE RFA # 18 PATENT AND FLUSHED, HAVE GONZÁLES CATHETER IN PLACE DRAINING YELLOW URINE VIA GRAVITY, BED ON LOWEST POSITION AND LOCKED SIDE RAILS UP X2 CALL LIGHT WITHIN REACH WILL CONT TO MONITOR
[2020-08-15] MEDS: LORAZEPAM 1 MG TABLET PO SCH (21:08)
[2020-08-16] VITALS (11 sets, daily range): BP systolic 112–159; BP diastolic 41–74
[2020-08-16 06:44] LABS: BASOPHILS % (AUTO) 0.6 % (0.0-2.0); EOSINOPHILS % (AUTO) 2.4 % (0.0-6.0); HEMATOCRIT 24 % (39-51); HEMOGLOBIN 7.9 g/dL (13.5-17.5); LYMPHOCYTES # (AUTO) 1.1 /CMM (0.8-4.8); MEAN CORPUSCULAR HGB CONC 33 g/dl (31.0-36.0); MEAN CORPUSCULAR VOLUME 86 fL (80-96); MONOCYTES % (AUTO) 14.3 % (2.0-12.0); NEUTROPHILS # (AUTO) 4.6 /CMM (1.8-8.9); NEUTROPHILS % (AUTO) 66.7 % (43.0-81.0); PLATELET COUNT (AUTO) 186 /CMM (150-450); RED BLOOD CELL COUNT(AUTO) 2.78 MIL/uL (4.5-6.0); WHITE BLOOD COUNT (AUTO) 6.9 K/uL (4.3-11.0)
--- NOTE | 2020-08-16 06:53 | NUR ---
PT ON BED ASLEEP EASY TO WAKE UP, NO SIGN AND SYMPTOMS OF RESPIRATORY DISTRESS NOTED, ON ROOM AIR TOLERATING WELL, TELE MONITOR READS SINUS RHYTHM 90'S, HAVE EPISODE OF AFIB 100'S LAST NIGHT, NO SIGNIFICANT CHANGES ON CONDITION NOTED ALL NEEDS ATTENDED BED ON LOWEST POSITION AND LOCKED SIDE RAILS UP X2 CALL LIGHT WITHIN REACH WILL ENDORSED TO AM SHIFT NURSE
[2020-08-16 07:30] LABS: ALANINE AMINOTRANSFERASE 16 U/L (12-78); ALBUMIN 2.7 g/dL (3.4-5.0); ALKALINE PHOSPHATASE 84 U/L (46-116); ASPARTATE AMINOTRANSFERASE 20 U/L (15-37); BILIRUBIN,TOTAL 0.6 mg/dL (0.2-1.0); CALCIUM, SERUM 8.9 mg/dL (8.5-10.1); CARBON DIOXIDE 25 mmol/L (21-32); CHLORIDE 100 mmol/L (98-107); CREATININE 3.4 mg/dL (0.6-1.3); GLUCOSE 124 mg/dL (74-106); MAGNESIUM 2.5 mg/dL (1.8-2.4); PHOSPHORUS 5.4 mg/dL (2.5-4.9); POTASSIUM 3.7 mmol/L (3.5-5.1); SODIUM SERUM 136 mmol/L (136-145)
--- NOTE | 2020-08-16 08:00 | NUR ---
RN OPENING NOTE PT IS AWAKE IN BED. A/O X3 AND SERBIAN SPEAKING. COMPLAINT OF PAIN 2/10 AND PAIN MEDS GIVEN. NO COMPLAINT OF NAUSEA. CURRENTLY ON RA WITH NO SOB OR RESPIRATORY DISTRESS PRESENT. CURRENTLY SINUS RHYTHM RECORDED ON EXTERNAL MONITOR. V/S STABLE. SKIN IS INTACT. NO EDEMA PRESENT. F/C PRESENT AND DRAINING WELL WITH CLEAR YELLOW FLUID. AMBULATORY WITH ASSIST. HL PRESENT ON RFA AND FLUSHES WELL. SAFETY MEASURES IN PLACE. SIDE RAILS RAISED. BED LOWERED. CALL LIGHT WITHIN REACH. WILL CONTINUE TO MONITOR.
[2020-08-16] MEDS: BLOOD SUGAR DIAGNOSTIC 1 EACH STRIP VI SCH ×4 (08:11→21:36)
[2020-08-16 08:15] LABS: UREA NITROGEN, BLOOD 88 mg/dL (7-18)
[2020-08-16] MEDS: MUPIROCIN OINT 2% 22 GM TUBE NS SCH ×2 (08:24→21:05)
[2020-08-16] MEDS: ALLOPURINOL 100 MG TABLET PO SCH (08:24)
[2020-08-16] MEDS: PANTOPRAZOLE 40 MG VIAL IV SCH ×2 (08:26→17:40)
[2020-08-16] MEDS: INSULIN REGULAR, HUMAN 100 UNIT/ML 3 ML VIAL SQ PRN ×2 (08:41→12:40)
[2020-08-16] MEDS: ISOSORBIDE DINITRATE (20MG) 20 MG TABLET PO SCH ×2 (08:42→17:00)
[2020-08-16] MEDS: NIFEdipine XL (30MG) 30 MG TAB PO SCH (08:42)
[2020-08-16] MEDS: ATORVASTATIN 40 MG TABLET PO SCH (08:43)
[2020-08-16] MEDS: CEFEPIME 2 GM in IV D5W 100 ML IV SCH (12:30)
[2020-08-16] MEDS: ACETAMINOPHEN 325 MG TABLET PO PRN (15:26)
--- NOTE | 2020-08-16 19:01 | NUR ---
RN CLOSING NOTE PT IS AWAKE IN BED. A/O X3 AND FRENCH SPEAKING. NO COMPLAINT OF PAIN NO COMPLAINT OF NAUSEA. CURRENTLY ON RA WITH NO SOB OR RESPIRATORY DISTRESS PRESENT. CURRENTLY SINUS RHYTHM RECORDED ON EXTERNAL MONITOR. V/S STABLE. SKIN IS INTACT. NO EDEMA PRESENT. F/C PRESENT AND DRAINING WELL WITH CLEAR YELLOW FLUID. AMBULATORY WITH ASSIST. HL PRESENT ON RFA AND FLUSHES WELL. ROUTINE MEDS GIVEN. SAFETY MEASURES IN PLACE. SIDE RAILS RAISED. BED LOWERED. REPORT TO BE GIVEN TO NIGHT NURSE FOR ROSALBA.
--- NOTE | 2020-08-16 19:35 | NUR ---
RN OPENING NOTES RECEIVED PT IN BED. AWAKE. A/O X4. PT ON ROOM AIR, TOLERATING WELL. NO S/S OF RESP DISTRESS OR SOB NOTED. BREATHING IS EVEN AND LABORED AT THIS TIME. SATURATING WELL AT 96%. PT IS ON TELE MONITORING PRESENTS WITH NSR HEART RATE OF 86 AT THIS TIME. PT HAS RIGHT FOREARM IV, FLUSHED ASEPTICALLY. PT HAS GONZÁLES CATH DRAINING VIA GRAVITY. PT DENIES PAIN AT THIS TIME. NEEDS ATTENDED AT THIS TIME. SAFETY MEASURES IN PLACE, HOB ELEVATED. BED IS LOCKED IN LOWEST POSITION WITH BED ALARM ON. SIDE RAILS UP X2. CALL LIGHT WITHIN REACH. WILL CONT TO MONITOR CLOSELY, MAKING FREQUENT ROUNDS.
[2020-08-16] MEDS: LORAZEPAM 1 MG TABLET PO SCH (21:27)
[2020-08-16] MEDS: *INSULIN REGULAR(HUMULIN R)HUM 100 UNIT/ML VIAL SQ PRN (21:39)
[2020-08-17] VITALS: BP 153/54
[2020-08-17] MEDS: ACETAMINOPHEN 325 MG TABLET PO PRN
--- NOTE | 2020-08-17 00:14 | NUR ---
PT REQUESTED MEDICATION FOR DAVIDSON, PRN TYLENOL ADMINISTERED ORDERED WILL CONT TO MONITOR.
[2020-08-17 04:00] VITALS: BP 145/50
[2020-08-17 05:53] LABS: BASOPHILS # (AUTO) 0.1 /CMM (0.0-0.2); BASOPHILS % (AUTO) 1.4 % (0.0-2.0); EOSINOPHILS % (AUTO) 7.2 % (0.0-6.0); HEMATOCRIT 30 % (39-51); LYMPHOCYTES % (AUTO) 19.2 % (20.0-44.0); MEAN CORPUSCULAR HGB CONC 33 g/dl (31.0-36.0); MEAN CORPUSCULAR VOLUME 86 fL (80-96); MONOCYTES # (AUTO) 0.7 /CMM (0.1-1.30); MONOCYTES % (AUTO) 13.2 % (2.0-12.0); NEUTROPHILS # (AUTO) 3.2 /CMM (1.8-8.9); PLATELET COUNT (AUTO) 204 /CMM (150-450); RED BLOOD CELL COUNT(AUTO) 3.48 MIL/uL (4.5-6.0); WHITE BLOOD COUNT (AUTO) 5.4 K/uL (4.3-11.0)
[2020-08-17 06:23] LABS: ALANINE AMINOTRANSFERASE 14 U/L (12-78); ALBUMIN 2.6 g/dL (3.4-5.0); ALKALINE PHOSPHATASE 88 U/L (46-116); ASPARTATE AMINOTRANSFERASE 23 U/L (15-37); BILIRUBIN,TOTAL 0.7 mg/dL (0.2-1.0); CALCIUM, SERUM 8.9 mg/dL (8.5-10.1); CARBON DIOXIDE 25 mmol/L (21-32); CHLORIDE 102 mmol/L (98-107); CREATININE 2.7 mg/dL (0.6-1.3); GLUCOSE 91 mg/dL (74-106); MAGNESIUM 2.6 mg/dL (1.8-2.4); PHOSPHORUS 4.4 mg/dL (2.5-4.9); POTASSIUM 3.9 mmol/L (3.5-5.1); SODIUM SERUM 138 mmol/L (136-145)
[2020-08-17 06:33] LABS: UREA NITROGEN, BLOOD 81 mg/dL (7-18)
--- NOTE | 2020-08-17 06:41 | NUR ---
RN CLOSING NOTES NO SIGNIFICANT CHANGES IN PT CONDITION. PT RESTING CURRENTLY IN BED, STILL ON ROOM AIR. NO S/S OF RESP DISTRESS OR SOB NOTED. STILL NSR ON MONITOR HR 82 AT THIS TIME. PT DENIES PAIN AT THIS TIME. NEEDS ATTENDED AT THIS TIME. SAFETY MEASURES IN PLACE, HOB ELEVATED. BED IS LOCKED IN LOWEST POSITION WITH BED ALARM ON. SIDE RAILS UP X2. CALL LIGHT WITHIN REACH. WILL ENDORSE TO AM NURSE FOR CONTINUATION OF CARE.
--- NOTE | 2020-08-17 07:00 | NUR ---
RN NOTES RECEIVED PT on BED. AWAKE. A/O X4. ON RA, NO DISTRESS NOTED, ON TELE SR HR IN 90'S , RIGHT FOREARM IV,S9 FLUSHED ASEPTICALLY. PT HAS GONZÁLES CATH DRAINING VIA GRAVITY. PT DENIES PAIN AT THIS TIME. NEEDS ATTENDED AT THIS TIME. SAFETY MEASURES IN PLACE, HOB ELEVATED. BED IS LOCKED IN LOWEST POSITION WITH BED ALARM ON. SIDE RAILS UP X2. CALL LIGHT WITHIN REACH. WILL CONT TO MONITOR CLOSELY, MAKING FREQUENT ROUNDS. Addendum: 08/17/20 at 0738 by ANT BARKLEY RN RIGHT FOREARM IV SITE, FLUSHED ASEPTICALLY.
[2020-08-17 08:00] VITALS: BP 159/77
[2020-08-17] MEDS: BLOOD SUGAR DIAGNOSTIC 1 EACH STRIP VI SCH ×2 (08:27→11:58)
[2020-08-17] MEDS: ALLOPURINOL 100 MG TABLET PO SCH (08:28)
[2020-08-17] MEDS: ISOSORBIDE DINITRATE (20MG) 20 MG TABLET PO SCH (08:28)
[2020-08-17] MEDS: ATORVASTATIN 40 MG TABLET PO SCH (08:28)
[2020-08-17] MEDS: NIFEdipine XL (30MG) 30 MG TAB PO SCH (08:29)
[2020-08-17] MEDS: PANTOPRAZOLE 40 MG VIAL IV SCH (08:29)
[2020-08-17] MEDS: MUPIROCIN OINT 2% 22 GM TUBE NS SCH (08:31)
[2020-08-17] MEDS ORDERED: CARVEDILOL 6.25 MG TABLET PO SCH (09:00)
[2020-08-17] MEDS: INSULIN REGULAR, HUMAN 100 UNIT/ML 3 ML VIAL SQ PRN (11:58)
[2020-08-17 12:00] VITALS: BP 127/63
[2020-08-17] MEDS: CEFEPIME 2 GM in IV D5W 100 ML IV SCH (13:00)
--- NOTE | 2020-08-17 13:58 | NUR ---
RN NOTES DISCHARGE INSTRUCTION GIVEN TO PT, VERBALIZES UNDERSTANDING, IV SITE AND GONZÁLES D/YELENA PER ORDER, PT VOIDING WELL , NO DIFFICULTY NOTED , PT LEFT THE FLOOR VIA W/C ACCOMPANIED BY STAFF MEMBERS IN STABLE CONDITION . PT'S SON TOOK THE PT HOME BY PRIVATE CAR .
== END 2020-08-17 14:22 | disposition home or self-care (01) | DRG 280 ==
LOC: ER 00:16 → TRANSITION 03:39 → ICU 09:58 → TELE1 08-14 09:57
PROVIDERS: ADMIT Internal Medicine; ATTEND Internal Medicine
PROC: 30233N1 Transfusion of Nonautologous Red Blood Cells into Peripheral Vein, Percutaneous Approach (ICD-10-PCS; principal; 2020-08-13)
DX: I13.0 Hypertensive heart and chronic kidney disease with heart failure and stage 1 through stage 4 chronic kidney disease, or unspecified chronic kidney disease (principal); J96.01 Acute respiratory failure with hypoxia; I21.4 Non-ST elevation (NSTEMI) myocardial infarction; G93.41 Metabolic encephalopathy; N17.0 Acute kidney failure with tubular necrosis; I50.33 Acute on chronic diastolic (congestive) heart failure; J81.1 Chronic pulmonary edema; Z20.822 Contact with and (suspected) exposure to COVID-19; E11.9 Type 2 diabetes mellitus without complications; I25.10 Atherosclerotic heart disease of native coronary artery without angina pectoris; E11.22 Type 2 diabetes mellitus with diabetic chronic kidney disease; D63.8 Anemia in other chronic diseases classified elsewhere; M10.9 Gout, unspecified; Z95.1 Presence of aortocoronary bypass graft; N18.9 Chronic kidney disease, unspecified; I70.0 Atherosclerosis of aorta; I48.91 Unspecified atrial fibrillation
CPT/HCPCS: 36415; 36600; 70450-TC; 71045-TC; 76770-TC; 80048-TC; 80053-TC; 80061-TC; 80076-TC; 81001; 82550-TC; 82570-TC; 82728-TC; 82803-TC; 82962-TC; 83540-TC; 83735-TC; 83880; 83970; 84100-TC; 84155; 84155-TC; 84165; 84300-TC; 84439-TC; 84443-TC; 84484-TC; 85025-TC; 85610-TC; 85730-TC; 86850-TC; 87081-TC; 93307-TC; 94799-TC; 97112-TC; 97116-TC; 97530-TC; A4216; C9113; C9803; G0378; J0282; J0692; J0885; J1644; J1815; J1940; J1956; J2270; J2405; J3490; J7040; J7050; J7060; P9016-BL